=== PATIENT | female | born 1955 | race Caucasian/White ===

== ENCOUNTER → 2023-09-30 08:01 | Outpatient (REF) | payer MEDICARE, SELFPAY | LOC: HWRAD 08:01 | PROVIDERS: ATTENDING PHYSICIAN Internal Medicine Hematology & Oncology; FAMILY PHYSICIAN Family Medicine | DX: C18.0 Malignant neoplasm of cecum (principal) | CPT/HCPCS: 71260; 74177; Q9967 ==

== ENCOUNTER → 2023-10-07 08:57 | Outpatient (REF) | payer MEDICARE, SELFPAY | LOC: MRI 08:57 | PROVIDERS: ATTENDING PHYSICIAN Internal Medicine Hematology & Oncology | DX: C18.0 Malignant neoplasm of cecum (principal) | CPT/HCPCS: 74183; A9575 ==

== ENCOUNTER → 2023-12-24 09:54 | Outpatient (REF) | payer MEDICARE, SELFPAY | LOC: HWRAD 09:54 | PROVIDERS: ATTENDING PHYSICIAN Family Medicine | DX: R93.89 Abnormal findings on diagnostic imaging of other specified body structures (principal) | CPT/HCPCS: 76830; 76856 ==

== ENCOUNTER → 2024-02-18 08:53 | Outpatient (REF) | payer MEDICARE, SELFPAY | LOC: HWRAD 08:53 | PROVIDERS: ATTENDING PHYSICIAN Obstetrics & Gynecology Gynecology; FAMILY PHYSICIAN Family Medicine | DX: N84.9 Polyp of female genital tract, unspecified (principal) | CPT/HCPCS: 76830; 76856 ==

== ENCOUNTER → 2024-02-19 06:15 | Day surgery (SDC) | payer MEDICARE, SELFPAY | LOC: GI 06:15 | PROVIDERS: ATTENDING PHYSICIAN Surgery | DX: Z12.11 Encounter for screening for malignant neoplasm of colon (principal); K64.9 Unspecified hemorrhoids; Z85.038 Personal history of other malignant neoplasm of large intestine; Z98.0 Intestinal bypass and anastomosis status; Z90.49 Acquired absence of other specified parts of digestive tract | CPT/HCPCS: G0105 ==

== ENCOUNTER → 2024-07-01 06:40 | Outpatient (REF) | payer MEDICARE, SELFPAY | LOC: WDC 06:40 | PROVIDERS: ATTENDING PHYSICIAN Family Medicine | DX: Z12.31 Encounter for screening mammogram for malignant neoplasm of breast (principal) | CPT/HCPCS: 77063; 77067 ==

== ENCOUNTER → 2024-08-07 10:30 | Outpatient (REF) | payer MEDICARE, SELFPAY | LOC: CLAB 10:30 | PROVIDERS: ATTENDING PHYSICIAN Obstetrics & Gynecology Gynecology | DX: R39.89 Other symptoms and signs involving the genitourinary system (principal); N84.0 Polyp of corpus uteri | CPT/HCPCS: 88305 ==

== ENCOUNTER 2024-08-22 08:22 | Emergency (ER) | payer MEDICARE, SELFPAY ==
[2024-08-22 08:26] VITALS: BP 129/84
--- NOTE | 2024-08-22 09:34 | ED.GENMED ---
History of Present Illness
General
Chief Complaint: Fall
Source: patient
Time Seen by Provider: 08/22/24 09:17
History of Present Illness
History of Present Illness:
69 yr old female with c/o fall that happened at approximately 8 AM while she was carrying a basket of laundry and her shoe got caught. She suffered a laceration to her upper lip and an abrasion to her left thumb. She just saw her primary care
doctor yesterday and believes that her tetanus is up-to-date but will confirm on Saturday. She denies any other injury. She denies loss of consciousness, headache, neck pain, numbness, tingling, nausea, vomiting, dizziness, or other complaints.
Past History
Past History
ED Past Medical History: HTN and Other (Neuropathy, colon cancer)
ED Past Surgical History: Appendectomy, and Other (Hepatic resection)
Social History
Tobacco: Non-smoker
Alcohol: None
Personal:
Living: with family
Phy Exam
Physical Exam
Physical Exam:
GENERAL: Alert , in no apparent distress
EYE: pupils equal and reactive, EOMI, no nystagmus, no photophobia, no periorbital swelling or bruising noted
NECK: Supple, no significant adenopathy, no midline tenderness.
ENT: o/p clr, mmm, teeth intact and stable. There is a shallow linear laceration noted at the right side of the upper lip and a associated laceration on the buccal aspect of the right upper lip. Laceration is not 'through and through'..
CARDIAC: Regular rate and rhythm .
LUNGS: Clear breath sounds bilaterally, no acute respiratory distress, no wheezes/rales/rhonchi
ABDOMEN: Soft, without focal tenderness, no r/g, no cvat
NEUROLOGICAL: Alert and oriented, no focal neuro deficits
SKIN: Warm and dry, skin intact except as noted above.
MUSCULOSKELETAL: No edema, well perfused.
PSYCH: Normal and appropriate interaction.
Course
Orders/Labs/Results
Orders:
Orders
08/22/24 09:37
Penicillin V Potassium [Pen Vk] 250 mg PO NOW STA
08/22/24 10:35
Tetanus/Diphth/Acelpertussis [Adacel] 0.5 ml IM .ONCE ONE
Vital Signs
Initial and Last Documented VS:
Initial Vital Signs
Pulse Resp BP Pulse Ox
86 18 129/84 100
08/22/24 08:26 08/22/24 08:26 08/22/24 08:26 08/22/24 08:26
Last Documented Vital Signs
Pulse Resp BP Pulse Ox
86 18 129/84 100
08/22/24 08:26 08/22/24 08:26 08/22/24 08:26 08/22/24 08:26
*Critical Care Note
Total Time (30-74mins, 75-104mins- exclusive of procedures): Not Applicable
Update Note
Update Note:
Patient presents to the Emergency Department with ____fall
Number and Complexity of Problems Addressed at the Encounter
� Chronic conditions affecting care:
� Acute Exacerbation and/or Progression of Chronic Illness:
� Differential Diagnosis includes: But not limited to intracranial injury, neck fracture, laceration, dental injury, etc. etc.
Amount and/or Complexity of Data to be Reviewed and Analyzed
� I performed an independent evaluation of and my interpretation is:
EKG:
CT:
Xrays:
Laboratory Studies:
Other:
� Review of other/old records reveals:
� Clinical information was obtained by an independent historian: who is bedside
� Prescriptions/Medications Considered but not given:
� Further testing considered but not performed:
Risk of Complications and/or Morbidity or Mortality of Patient Management
� Social determinants of health affecting care:
� Discussion with other providers (PCP, Hospitalists, Consultants, etc):
� Escalation of care including admission/observation vs risk of discharge considered:Note: on nasal exam, no bony ttp, no septal hematoma. Sl brb at L nare (no flow), with suspected underlying septal abrasion.
WOUND REPAIRED BY SHIVAM CORTES. PT NOW STATES SHE IS NOT SURE OF LAST TD. WILL UPDATE HERE.
ED Attending Note
-
Portions of this chart may have been created with voice recognition software.� Occasional wrong word or��sound alike� substitutions may have occurred due to the inherent limitations of voice recognition software.
Discharge Plan
Departure
Patient Disposition: Home (Routine Discharge)
Date of Disposition: 08/22/24
Time of Disposition: 10:30
Patient with high blood pressure during this ER visit?: Yes
Condition: Good
Discharge Problem:
Laceration
Instructions: Laceration Repair With Stitches (DC), BLOOD PRESSURE
Prescriptions:
New
penicillin V potassium 500 mg tablet
500 mg PO TID 5 Days Qty: 15 0RF
No Action
calcium carbonate-vitamin D3 500 mg-3.125 mcg (125 unit) Tablet
2 tab PO DAILY
biotin 2,500 mcg Tablet,Chewable
2,500 mcg PO DAILY
valacyclovir [Valtrex] 1 gram Tablet
1,000 mg PO PRN PRN (Reason: fever blisters)
vitamin E mixed 400 unit Capsule
400 unit PO DAILY
Polymyxin Eye Drops
2 drp ophthalmic (eye) PRN PRN (Reason: eye problems)
acetaminophen [acetaminophen] 325 mg tablet
650 mg PO Q4HPRN PRN (Reason: mild pain) Qty: 1 0RF
ibuprofen 200 mg tablet
400 - 600 mg PO Q6HPRN PRN (Reason: moderate pain) Qty: 1 0RF
oxycodone 5 mg tablet
5 mg PO Q4HPRN PRN (Reason: breakthrough/severe pain) Qty: 15 0RF
Referrals:
Ruthie Portillo MD [Family Provider] - Follow up in 2-3 days
Activity Restrictions/Additional Instructions:
IF YOU DEVELOP BLEEDING, DRAINAGE, FEVER, NUMBNESS, WEAKNESS, SEVERE HEADACHE, VOMITING, TROUBLE SWALLOWING, TROUBLE BREATHING, RECURRENT NOSE BLEED OR OTHER WORRISOME SIGNS, GO TO THE ER IMMEDIATELy!
Interventions
Interventions:
*Risk Screen - Suicide Last Done: 08/22/24 08:26
*General Assessment Last Done: 08/22/24 08:26
*Neglect/Abuse Screening Last Done: 08/22/24 08:26
Discharge Date and Time
Print Language: ARABIC
[2024-08-22] MEDS: ADACEL 0.5 ML IM (10:48)
[2024-08-22] MEDS: PEN VK 250 MG PO (10:49)
[2024-08-22 10:55] VITALS: BP 122/63
== END 2024-08-22 10:56 | disposition home or self-care (01) ==
LOC: EMR 08:22
PROVIDERS: EMERGENCY PHYSICIAN Emergency Medicine; FAMILY PHYSICIAN Family Medicine
DX: S01.511A Laceration without foreign body of lip, initial encounter (principal); S60.312A Abrasion of left thumb, initial encounter; W19.XXXA Unspecified fall, initial encounter; Z23 Encounter for immunization; I10 Essential (primary) hypertension; Z85.038 Personal history of other malignant neoplasm of large intestine; Z90.49 Acquired absence of other specified parts of digestive tract
CPT/HCPCS: 99282; 12001; 90471; 90715

== ENCOUNTER → 2025-02-11 21:01 | Outpatient (REF) | payer MEDICARE, SELFPAY | LOC: MRI 21:01 | PROVIDERS: ATTENDING PHYSICIAN Nurse Practitioner Adult Health; FAMILY PHYSICIAN Family Medicine | DX: C18.9 Malignant neoplasm of colon, unspecified (principal); C78.7 Secondary malignant neoplasm of liver and intrahepatic bile duct | CPT/HCPCS: 72158; A9575 ==

== ENCOUNTER → 2025-03-24 10:02 | Outpatient (REF) | payer MEDICARE, SELFPAY | LOC: RAD 10:02 | PROVIDERS: ATTENDING PHYSICIAN Family Medicine | DX: Z78.0 Asymptomatic menopausal state (principal) | CPT/HCPCS: 77080 ==